=== PATIENT | male | born 1995 | race Asian ===

== ENCOUNTER 2016-08-29 00:55 | Emergency (ER) | payer OTHER ==
[2016-08-29 01:55] VITALS: BP 118/60; PULSE 85; TEMP 98.6; BMI 27.1
[2016-08-29] MEDS ORDERED: IBUPROFEN 600 MG TABLET (FP) PO ONE ×2 (02:41→03:08)
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
== END 2016-08-29 03:23 | disposition home or self-care (01) ==
LOC: JER 00:55
DX: M54.5 Low back pain (principal); V43.62XA Car passenger injured in collision with other type car in traffic accident, initial encounter; Y92.488 Other paved roadways as the place of occurrence of the external cause; Y93.89 Activity, other specified
CPT/HCPCS: 99283-25